=== PATIENT | male | born 1955 | race Two or more races ===

== ENCOUNTER 2022-10-28 06:56 | Day surgery (SDC) | payer OTHER ==
[~2022-10-28] VITALS: Ht 162.6 cm; Wt 59.9 kg
== END 2022-10-28 17:30 | disposition home or self-care (01) ==
LOC: CIR.AMB 06:56
PROVIDERS: ATTEND Specialist
DX: K40.90 Unilateral inguinal hernia, without obstruction or gangrene, not specified as recurrent (principal); Z20.822 Contact with and (suspected) exposure to COVID-19; F17.210 Nicotine dependence, cigarettes, uncomplicated
CPT/HCPCS: 49505; C1781